=== PATIENT | female | born 1935 | race Caucasian/White ===

== ENCOUNTER 2022-04-27 00:17 | Inpatient (IN) | payer MEDICARE, OTHER ==
[~2022-04-27] VITALS: Ht 165.1 cm; Wt 47.2 kg
--- NOTE | 2022-04-27 00:32 | NUR ---
Medically cleared by ERMD
--- NOTE | 2022-04-27 00:48 | NUR ---
Transfered to [facility] by [facility].
[2022-04-27] MEDS ORDERED: MAGNESIUM HYDROXIDE 30 ML LIQUID UDC PO PRN (01:15)
[2022-04-27] MEDS ORDERED: MAG HYDROX/AL HYDROX/SIMETH 30 ML LIQUID UDC PO PRN (01:15)
[2022-04-27] MEDS ORDERED: BLOOD SUGAR DIAGNOSTIC 1 EACH STRIP VI ONE (01:15)
[2022-04-27] MEDS ORDERED: ACETAMINOPHEN 325 MG TABLET PO PRN (01:15)
[2022-04-27] MEDS ORDERED: TEMAZEPAM 7.5 MG CAPSULE PO PRN (01:15)
[2022-04-27 01:20] VITALS: BP 175/85
--- NOTE | 2022-04-27 01:30 | NUR ---
GPS NOTES: Admitted a 87 y/o female from [facility], BIB by [address] [facility], on 5150 d/t gravely disabled from 04/26/22 to @1815. Patient residing at home where a wellness checked was conducted by [employer] and [employer], she was found living in poor condition, lacks insight of her current situation, two cats were found at removed by her senior logistics manager. She forgot when she last ate and unable to care for herself. Upon face to face evaluation, patient is A&0x1, she is confused and unable to provide informations in regards to her history, she appears her stated age and fairly groomed. She is cooperative with body assessment, bilateral below extremities are to be edematous +2, she denies pain in the area. Toenails also appears to be mycotic. Pictures taken and filed. Upon collecting her belongings, a necklace was attempted to retrieve from her, she then became agitated, hostile and combative. Re-assure patient that her belongings will be for safe keeping. Patient not understanding the concepts and continues to be paranoid with the staff of stealing from her. Patient is very argumentative, paranoid and delusional. Patient stating "I don't know you people, you are keeping me in [facility], this is not my home, I want to go home!" Re-assurance provided that she is in a safe environment. Patient is oriented briefly in the unit. Her rights were explained, advisement and pt's right handbook given at bedside. She will be followed by Dr. Muñoz and Dr. Payton. Patient was kept safe at all times.
--- NOTE | 2022-04-27 07:32 | NUR ---
Patient sitting in a gerichair, hyperverbal, "where are my shoes, my purse, my keys, I know where I am in the hospital", orientated patient to current status, and situation, patient with poor insight. A/O x1, no S/S of discomforts noted. Will continue to monitor.
[2022-04-27 08:00] VITALS: BP 150/50
--- NOTE | 2022-04-27 12:18 | NUR ---
Patient is hyperverbal, focus on discharge, anxious, disorganized thoughts, persistent on getting out of unit, refuses po prns, "I dont need any medications, I don t take anything, I want go to the parking lot to go my car", patient unable to formulate a safe plan, want go outside to the parking lot to look for her car. Patient has poor insight, frequent verbal redirections requiring, emotional support provided.continue to monitor
[2022-04-27 16:00] VITALS: BP 123/55
--- NOTE | 2022-04-27 16:25 | NUR ---
GERMAN Initial Discharge Note: Pt currently resides at home alone located at [address] [place] [id number]. GERMAN will contact pt's friend, Reagan [phone] to discuss a safe discharge plan for the pt. GERMAN will continue to work with pt, Mike and to ensure a safe and proper discharge plan.
--- NOTE | 2022-04-27 16:26 | NUR ---
GERMAN Family Contact: Per pt, she does not have any children or family support. GERMAN will contact pt's friend, Reagan [phone] to discuss a safe discharge plan for the pt.
[2022-04-27] MEDS: DIVALPROEX SPRINKLE 125 MG CAP.SPRINK PO SCH (17:00)
--- NOTE | 2022-04-27 17:30 | NUR ---
Patient refused 17:00 Divalproex Sodium, "I dont want to take any medication it make my skin dry and my vein with no blood flow". continue to refused medications, educated patient on medication action and reaction but still continue to refused.
[2022-04-27 20:00] VITALS: BP 130/48
[2022-04-27] MEDS: MIRTAZAPINE 15 MG TABLET PO SCH (21:00)
--- NOTE | 2022-04-28 06:28 | NUR ---
GPS NOTES: Patient received in the hallway, interacting w/another peer. Patient A&0x1, ambulatory with minimal assistance to ADL's. She is confused and unaware of her current situation. She refused her remeron, explained the risks and benefits 3x but still confused. She is calm, pleasant and able to make her need known. She is sleeping on and off this shift. No distress noted. Safety measures left in places.
--- NOTE | 2022-04-28 06:47 | NUR ---
WOUND CARE CONSULT: RECEIVED CONSULT FOR TOENAILS. PT NOTED TO HAVE THICKENED TOENAILS WITH STAINING/DEBRIS WELL DISCOLORATION WITH THICKENED SKIN TO LOWER LEGS, PRESENT ON ADMISSION. RECOMMENDATIONS MADE FOR SKIN PROTECTION. DISCUSSED WITH NURSING STAFF. WILL SEE PRN. MEYER IN AGREEMENT WITH PLAN OF CARE.
[2022-04-28 08:25] VITALS: BP 140/49
[2022-04-28] MEDS: DIVALPROEX SPRINKLE 125 MG CAP.SPRINK PO SCH ×2 (08:39→17:00)
[2022-04-28] MEDS: MINERAL OIL/PETROLATUM,WHITE 57 GM TUBE TOP SCH (09:00)
[2022-04-28 16:14] VITALS: BP 112/55
--- NOTE | 2022-04-28 17:54 | NUR ---
Received patient in bed confused and disoriented , influenced by her roommate not taking any medication and not eating her breakfast.nurses staffs persuaded and explained patient took AM medication but still refused PM medication.refused to attend in group activity ,will continue close monitoring for safety
[2022-04-28 20:10] VITALS: BP 129/61
[2022-04-28] MEDS: MIRTAZAPINE 15 MG TABLET PO SCH (20:36)
--- NOTE | 2022-04-29 06:23 | NUR ---
GPS: Pt.slept 5.30 last night. Awake and was just given a shower by staff. Remains irritable,labile,argumentative,confused,delusional and suspicious. Re-directed prn. Safe environment provided. Will continue to monitor.
[2022-04-29 07:52] VITALS: BP 91/40
[2022-04-29] MEDS: DIVALPROEX SPRINKLE 125 MG CAP.SPRINK PO SCH ×3 (08:54→16:10)
[2022-04-29] MEDS: MINERAL OIL/PETROLATUM,WHITE 57 GM TUBE TOP SCH ×2 (08:54→23:18)
[2022-04-29 09:36] LABS: HEMATOCRIT 33.4 % (31.2-41.9); MEAN CORPUSCULAR HEMOGLOBIN 32.8 uug (24.7-32.8); MEAN CORPUSCULAR VOLUME 95.1 fL (75.5-95.3); PLATELET COUNT (AUTO) 103 K/uL (179-408)
[2022-04-29] MEDS: ENSURE ENLIVE (VAN) 240 ML LIQUID PO SCH ×2 (09:45→16:10)
[2022-04-29 10:01] LABS: BILIRUBIN,TOTAL 0.9 mg/dL (0.2-1.0); CREATININE 1.2 mg/dL (0.6-1.3); MAGNESIUM 2.2 mg/dL (1.8-2.4); PHOSPHOROUS 3.7 mg/dL (2.5-4.9); POTASSIUM 4.2 mmol/L (3.5-5.1); TOTAL PROTEIN, SERUM 5.5 g/dL (6.4-8.2)
--- NOTE | 2022-04-29 15:01 | NUR ---
GPS: Nursing Notes: Noncompliant With Medications: Patient is awake and responding to her name, disoriented, impaired judgment, poor insight, resistant with nursing care, argumentative with staff, refusing her medication because she believes that she does not have mental illness, confused, disorganized, stated "I do work here.... You need to call the boss...", redirected and reoriented during shift, but she gets easily irritable when redirected, loud and pressured speech, unable to formulate a viable plan for self care, unkempt appearance, continue to monitor for safety, continue with treatment plan.
[2022-04-29 16:07] VITALS: BP 115/67
[2022-04-29 20:00] VITALS: BP 147/55
[2022-04-29] MEDS: MIRTAZAPINE 15 MG TABLET PO SCH ×2 (20:22→21:00)
[2022-04-29] MEDS: LORAZEPAM 0.5 MG TABLET PO PRN (20:24)
--- NOTE | 2022-04-30 05:20 | NUR ---
Received pt awake in room, Confused ,disoriented labile, easily irritable, Pt is resistant with nursing care and not compliant with medications. pt refused her medications and stated "i do not have any sickness , i do not need any medications". Pt is argumentative with staff,Pt stated "i need to call the police, you guys are trying to harm me by pushing medications on me" . Pt was redirected and reoriented , Pt is unable to formulate a viable plan for self care. Reassurance provided. Continue to monitor for safety, continue with treatment plan.
[2022-04-30 08:38] VITALS: BP 120/54
[2022-04-30] MEDS: DIVALPROEX SPRINKLE 125 MG CAP.SPRINK PO SCH ×3 (08:42→16:21)
[2022-04-30] MEDS: ENSURE ENLIVE (VAN) 240 ML LIQUID PO SCH ×2 (08:43→16:21)
--- NOTE | 2022-04-30 13:04 | NUR ---
GPS: Nursing Notes: Noncompliance With Medication: Patient is awake and responding to her name, impaired judgment, poor insight, believes that there is nothing wrong with her, refusing her medication, argumentative, loud and pressured speech, paranoid behavior, stated "You are trying to poison me with that pill..", explained the pros and cons of medication, but continue to refuse her medication, gets easily irritable when redirected, unable to formulate a viable plan for self care, continue with treatment plan.
[2022-04-30 16:04] VITALS: BP 138/94
--- NOTE | 2022-04-30 20:00 | NUR ---
Received patient in bed, awake, goes to toilet for bladder eliminations, calm at this time, cont to monitor.
[2022-04-30 20:02] VITALS: BP 116/48
[2022-04-30] MEDS: MIRTAZAPINE 15 MG TABLET PO SCH (21:00)
--- NOTE | 2022-04-30 21:32 | NUR ---
refused mirtazapine 7.5 mg stated I'm not depressed.
--- NOTE | 2022-05-01 03:30 | NUR ---
Patient awake seated at the chair, patient looking for her shoes but they are not listed in the inventory, encourage patient to back to bed so that lower extremities can be elevated with pillow, patient that +3 edema of the feet and ankle. Patient refused to follow instructions, despite multiple explanation was given, uncooperative with care and medications, wanted to be release from this hospital, confused and argumentative. Patient roomates an instigator gives the patient wrong information about patient doctor, patient health etc. reorient patient that she should not listen to her room because roomates is confused and does not understand patient situation. Staff unable to convince patient to follow. Patient and roomates in the hallways making noise refused to go back to their room, asked security to escort them to the room and successful, cont to monitor.
[2022-05-01] MEDS: ENSURE ENLIVE (VAN) 240 ML LIQUID PO SCH ×2 (08:00→17:00)
[2022-05-01] MEDS: DIVALPROEX SPRINKLE 125 MG CAP.SPRINK PO SCH ×3 (08:27→17:00)
[2022-05-01] MEDS: MINERAL OIL/PETROLATUM,WHITE 57 GM TUBE TOP SCH (08:27)
[2022-05-01 08:30] VITALS: BP 114/57
--- NOTE | 2022-05-01 11:53 | NUR ---
Awa papers were faxed to [address] today at 11:10, Jesika confirmed that the court received it.
--- NOTE | 2022-05-01 14:09 | NUR ---
GPS: Nursing Notes: Noncompliance With Medications: Patient is awake and responding to her name, uncooperative with nursing care, impaired judgment, poor insight, believes that there is nothing wrong with her, stated "You are crazy.. I do not belong here..I am going to call the police..", "I am not mentally ill.. I am not going to take any medication..", gets easily irritable when redirected, argumentative, educational materials given regarding Seroquel and Depakote, explained the pros and cons of the medications, but continue to refuse the psych. medications, loud and pressured speech, angry at staff, threatening staff by calling the police and send staff to residential, unable to formulate a viable plan for self care, continue to monitor for safety, continue with treatment plan.
[2022-05-01 16:20] VITALS: BP 101/47
[2022-05-01 19:44] VITALS: BP 128/59
[2022-05-01] MEDS ORDERED: QUETIAPINE FUMARATE 25 MG TABLET PO SCH (21:00)
--- NOTE | 2022-05-02 03:37 | NUR ---
Patient continues to refuse all medications, despite education and encouragement. This engineering technical writer is unable to engage in any meaningful conversation with this patient because she will argues about everything, is paranoid , delusional and verbally abusive to the staff. Reorientation and redirection is ongoing . Safety Stratiges are in place, and assistance with ADLs provided when the patient allows.
[2022-05-02 07:45] LABS: HEMATOCRIT 28.7 % (31.2-41.9); MEAN CORPUSCULAR HEMOGLOBIN 32.8 uug (24.7-32.8); PLATELET COUNT (AUTO) 92 K/uL (179-408)
[2022-05-02] MEDS: ENSURE ENLIVE (VAN) 240 ML LIQUID PO SCH ×2 (08:00→16:10)
[2022-05-02 08:05] LABS: BILIRUBIN,TOTAL 0.6 mg/dL (0.2-1.0); CREATININE 1.1 mg/dL (0.6-1.3); POTASSIUM 4.5 mmol/L (3.5-5.1); TOTAL PROTEIN, SERUM 4.9 g/dL (6.4-8.2)
[2022-05-02 08:08] VITALS: BP 136/71
[2022-05-02] MEDS: DIVALPROEX SPRINKLE 125 MG CAP.SPRINK PO SCH ×2 (08:43→12:58)
[2022-05-02] MEDS: MINERAL OIL/PETROLATUM,WHITE 57 GM TUBE TOP SCH (08:43)
[2022-05-02] MEDS ORDERED: OLANZAPINE 10 MG VIAL IM PRN (11:00)
--- NOTE | 2022-05-02 11:14 | NUR ---
GPS: Nursing Notes: Noncompliance With Medication: Patient is awake and responding to her name, impaired judgment, poor insight, believes that there is nothing wrong with her, refusing her medication, stated "I am not mentally ill.... I don't want to take any medication...I am going to call the police..", resistant with nursing care, gets easily irritable when redirected, argumentative, poor anger management, unable to formulate a viable plan for self care, continue with treatment plan.
[2022-05-02 15:22] VITALS: BP 111/50
[2022-05-02 16:40] LABS: LYMPHOCYTES % (MANUAL) 33 % (20-40); MONOCYTES % (MANUAL) 6 % (2-10); NEUTROPHILS % (MANUAL) 60 % (42-75)
[2022-05-02 16:41] LABS: BASOPHILS % (MANUAL) 0 % (0-2); EOSINOPHILS % (MANUAL) 1 % (0-8)
[2022-05-02 19:51] VITALS: BP 134/66
[2022-05-02] MEDS: OLANZAPINE 2.5 MG TABLET PO SCH (20:40)
--- NOTE | 2022-05-03 06:40 | NUR ---
GPS: Pt.slept 5.30 last night. Remains confused,forgetful but more re-directable. Less argumentative and irritable. Safe environment provided. Needs attended.
[2022-05-03 07:55] VITALS: BP 100/52
[2022-05-03] MEDS: ENSURE ENLIVE (VAN) 240 ML LIQUID PO SCH ×2 (08:57→17:05)
[2022-05-03] MEDS: MINERAL OIL/PETROLATUM,WHITE 57 GM TUBE TOP SCH (09:21)
[2022-05-03 15:10] VITALS: BP 126/53
--- NOTE | 2022-05-03 15:42 | NUR ---
Received Pt in room responding to her name. Pt is confused forgetful, labile easily irritable but more redirectable and less argumentative.Pt is compliant with nursing care and needs moderate assistance with ADLs. reassurance provided Continue to monitor for safety , continue with treatment plan.
[2022-05-03 16:58] LABS: *BILIRUBIN,URIN NEGATIVE (NEGATIVE); *BLOOD, URINE NEGATIVE (NEGATIVE); *CLARITY,URINE CLEAR (CLEAR); *COLOR,URINE YELLOW (YELLOW); *KETONES,URINE NEGATIVE (NEGATIVE); *UROBILINOGEN,URINE 0.2 E.U./dl (NORMAL); LEUKOCYTE ESTERASE ,URINE TRACE (NEGATIVE); NITRITE, URINE NEGATIVE (NEGATIVE); PH,URINE 5.5 (5.0-8.0); UGLUCOSE NEGATIVE (NEGATIVE)
[2022-05-03 19:58] VITALS: BP 114/51
[2022-05-03] MEDS: OLANZAPINE 2.5 MG TABLET PO SCH (20:09)
[2022-05-03 22:35] LABS: BACTERIA,URINE FEW /HPF (NONE SEEN); RBC,URINE 0-3 /HPF (0-3); SQUAMOUS EPITHELIAL CELL,UR FEW /HPF (NONE SEEN)
--- NOTE | 2022-05-04 06:13 | NUR ---
GPS: Pt.slept 6 hrs.last night and remains in bed resting comfortably. Less labile.argumentative,irritable when approached. Insight and judgment remains impaired. Staff continues to explain the importance of taking her meds.prescribed. Safe environment provided. Needs attended.
[2022-05-04 07:36] LABS: HEMATOCRIT 28.7 % (31.2-41.9); MEAN CORPUSCULAR HEMOGLOBIN 33.2 uug (24.7-32.8); MEAN CORPUSCULAR VOLUME 96.7 fL (75.5-95.3); PLATELET COUNT (AUTO) 98 K/uL (179-408)
[2022-05-04 08:12] LABS: MAGNESIUM 2.1 mg/dL (1.8-2.4); PHOSPHOROUS 3.6 mg/dL (2.5-4.9); POTASSIUM 4.3 mmol/L (3.5-5.1)
[2022-05-04 08:38] VITALS: BP 117/51
[2022-05-04] MEDS: MINERAL OIL/PETROLATUM,WHITE 57 GM TUBE TOP SCH (09:03)
[2022-05-04] MEDS: ENSURE ENLIVE (VAN) 240 ML LIQUID PO SCH ×2 (09:03→17:08)
[2022-05-04 13:54] LABS: IRON, SERUM 49 ug/dL (50-175)
[2022-05-04 14:24] LABS: FERRITIN 193 ng/mL (8-252)
[2022-05-04 14:26] LABS: *RHEUMATOID FACTOR SCREEN NEGATIVE (NEGATIVE)
--- NOTE | 2022-05-04 15:00 | NUR ---
Nursing- Had been in and out of her activity group, difficulty finding her room, , constantly being redirected . Compliant with routine am medications . Interacts with her selected peers. Assisted with her simple hygiene.
[2022-05-04 16:04] VITALS: BP 148/46
[2022-05-04 21:13] VITALS: BP 102/45
[2022-05-04] MEDS: CEphaleXIN 500 MG CAPSULE PO SCH (23:50)
[2022-05-04] MEDS: OLANZAPINE 2.5 MG TABLET PO SCH (23:51)
--- NOTE | 2022-05-05 04:25 | NUR ---
Patient was sleeping at start of the shift, therefore PO medications were given late. Patient was assisted to the bathroom, cherelle care and oral care provided. The patient is less paranoid then previously noted . This patient has poor insight into her situation, living conditions and abilities to preform her ADLs safely. The patient is argumentative at times and got up in the night to ask the staff " Wake up my room mate and tell her to stop snoring"! Redirection and reassurance is on going. Safety Stratiges remain in place. Continuing to monitor for compliance.
[2022-05-05 07:34] VITALS: BP 118/40
[2022-05-05] MEDS: ENSURE ENLIVE (VAN) 240 ML LIQUID PO SCH ×2 (08:00→17:17)
[2022-05-05] MEDS ORDERED: VENLAFAXINE XR 37.5 MG CAP.SR.24H PO SCH (09:00)
[2022-05-05 10:07] LABS: *ANTI-SCLERODERMA-70 AB <0.2 AI (0.0-0.9); *IMMUNOGLOBULIN G, SERUM 672 mg/dL (586-1602); *SJOGREN'S ANTI-SS-A 0.3 AI (0.0-0.9); *SJOGREN'S ANTI-SS-B <0.2 AI (0.0-0.9); *SMITH ANTIBODIES <0.2 AI (0.0-0.9); ANTI-DNA(DS) AB, QN 1 IU/mL (0-9); HEPATITIS B SURFACE AG Negative (Negative); IMMUNOGLOBULIN M, SERUM 52 mg/dL (26-217)
[2022-05-05] MEDS: MINERAL OIL/PETROLATUM,WHITE 57 GM TUBE TOP SCH (10:13)
--- NOTE | 2022-05-05 11:00 | NUR ---
Gps/Taxicab Starter- Kept patient NPO for abdominal u/s as ordered, called ultrasound Dept 3 x, left messages. no answer nor return call., patient was well informed why she was kept NPO r/t to test . Patient claimed she's very hungry , and cant wait to eat .
[2022-05-05] MEDS: CEphaleXIN 500 MG CAPSULE PO SCH ×2 (12:48→20:28)
[2022-05-05 13:06] LABS: A/G RATIO 1.4 (0.7-1.7); ALBUMIN 2.6 g/dL (2.9-4.4); ALPHA-1-GLOBULIN 0.2 g/dL (0.0-0.4); ALPHA-2-GLOBULIN 0.4 g/dL (0.4-1.0); BETA GLOBULIN 0.6 g/dL (0.7-1.3); GAMMA GLOBULIN 0.6 g/dL (0.4-1.8); GLOBULIN, TOTAL 1.9 g/dL (2.2-3.9); M-SPIKE Not Observed g/dL (Not Observed)
[2022-05-05 15:37] VITALS: BP 104/42
--- NOTE | 2022-05-05 16:39 | NUR ---
Gps/Pot Fireman- Compliant with routine meds, had been quiet, resumed diet, patient complained of being hungry kept asking fo her food. U/S was called couple of times to check schedule time for U/S no return call received , Tamie TAI was informed , aware of previous labs
[2022-05-05] MEDS ORDERED: CYANOCOBALAMIN 1000 MCG/ML VIAL IM SCH (17:45)
[2022-05-05] MEDS: LORAZEPAM 0.5 MG TABLET PO PRN (20:17)
[2022-05-05] MEDS: OLANZAPINE 2.5 MG TABLET PO SCH (20:27)
[2022-05-05] MEDS: CYANOCOBALAMIN 1000 MCG/ML VIAL IM SCH (20:28)
[2022-05-05 20:48] VITALS: BP 130/51
--- NOTE | 2022-05-06 06:09 | NUR ---
Patient had 2.30 hr of sleep. The patient was up multiple times during the night, using the bathroom. She was incontinent each time and has no bladder control. The patient has been compliant with medications and continues to be on antibiotics for a UTI. A shower was provided . Safety Stratiges remain in place. The patient has poor insight of her situation and believes that she can live alone at home without difficulty. Maximum assistance needed with all ADLs at this time.
[2022-05-06 07:47] VITALS: BP 126/44
[2022-05-06 08:08] LABS: HEMATOCRIT 30.6 % (31.2-41.9); MEAN CORPUSCULAR HEMOGLOBIN 32.9 uug (24.7-32.8); MEAN CORPUSCULAR VOLUME 97.2 fL (75.5-95.3); PLATELET COUNT (AUTO) 110 K/uL (179-408)
[2022-05-06 08:18] LABS: POTASSIUM 4.5 mmol/L (3.5-5.1)
[2022-05-06] MEDS: MINERAL OIL/PETROLATUM,WHITE 57 GM TUBE TOP SCH (08:53)
[2022-05-06] MEDS: CEphaleXIN 500 MG CAPSULE PO SCH ×2 (08:53→20:48)
[2022-05-06] MEDS: ENSURE ENLIVE (VAN) 240 ML LIQUID PO SCH ×2 (08:54→17:05)
[2022-05-06] MEDS: LEVOTHYROXINE SODIUM 25 MCG TABLET PO SCH (08:56)
[2022-05-06 18:08] VITALS: BP 107/53
[2022-05-06] MEDS: OLANZAPINE 2.5 MG TABLET PO SCH (20:47)
[2022-05-06] MEDS: CYANOCOBALAMIN 1000 MCG/ML VIAL IM SCH (20:48)
[2022-05-06 21:02] VITALS: BP 116/51
--- NOTE | 2022-05-06 21:53 | NUR ---
RECEIVED REPORT FROM JACQUIE PRIETO.
[2022-05-07] MEDS: LEVOTHYROXINE SODIUM 25 MCG TABLET PO SCH (06:05)
--- NOTE | 2022-05-07 07:01 | NUR ---
REPORT GIVEN TO JACQUIE MEDEROS.
[2022-05-07 07:37] LABS: HEMATOCRIT 32.4 % (31.2-41.9); MEAN CORPUSCULAR HEMOGLOBIN 33.1 uug (24.7-32.8); MEAN CORPUSCULAR VOLUME 97.6 fL (75.5-95.3); PLATELET COUNT (AUTO) 122 K/uL (179-408)
[2022-05-07 07:47] LABS: CREATININE 0.9 mg/dL (0.6-1.3); POTASSIUM 4.8 mmol/L (3.5-5.1)
[2022-05-07 08:14] VITALS: BP 121/68
[2022-05-07] MEDS: CEphaleXIN 500 MG CAPSULE PO SCH ×2 (08:52→20:53)
[2022-05-07] MEDS: ENSURE ENLIVE (VAN) 240 ML LIQUID PO SCH ×2 (08:53→17:27)
[2022-05-07] MEDS: MINERAL OIL/PETROLATUM,WHITE 57 GM TUBE TOP SCH (08:55)
--- NOTE | 2022-05-07 16:00 | NUR ---
Gps/R D Engineer- Kept coming out of her room requesting assist to help her with her diaper, assisted with her hygiene , incontinence of bladder noted. Increased edema to lower extremities encouraged to stay in bed elevate her lower extremities . Safety reviewed , making her simple needs known.
[2022-05-07 16:26] VITALS: BP 129/56
[2022-05-07 20:13] VITALS: BP 110/50
[2022-05-07] MEDS: OLANZAPINE 2.5 MG TABLET PO SCH (20:53)
[2022-05-07] MEDS: CYANOCOBALAMIN 1000 MCG/ML VIAL IM SCH (21:37)
--- NOTE | 2022-05-08 05:30 | NUR ---
Patient awake, ambulate in her room and hallways, Patient calm and cooperative with care and medications, no behavioral problem noted, cont to monitor.
[2022-05-08] MEDS: LEVOTHYROXINE SODIUM 25 MCG TABLET PO SCH (06:45)
[2022-05-08 07:40] LABS: HEMATOCRIT 29.9 % (31.2-41.9); MEAN CORPUSCULAR HEMOGLOBIN 32.8 uug (24.7-32.8); MEAN CORPUSCULAR VOLUME 97.8 fL (75.5-95.3); PLATELET COUNT (AUTO) 115 K/uL (179-408)
[2022-05-08 07:51] LABS: CREATININE 1.1 mg/dL (0.6-1.3); POTASSIUM 4.5 mmol/L (3.5-5.1)
[2022-05-08 07:56] VITALS: BP 101/44
[2022-05-08] MEDS: CEphaleXIN 500 MG CAPSULE PO SCH ×2 (08:41→20:40)
[2022-05-08] MEDS: ENSURE ENLIVE (VAN) 240 ML LIQUID PO SCH (08:41)
[2022-05-08] MEDS: MINERAL OIL/PETROLATUM,WHITE 57 GM TUBE TOP SCH (08:42)
--- NOTE | 2022-05-08 14:26 | NUR ---
GPS: Nursing Notes: Noncompliance With Medication: Patient is awake and responding to her name, cooperative with nursing care, compliant with her medication, following staff directions, A/Ox2, forgetful at times, needs prompting to participate in therapeutic groups, needs minimal assistance with ADL's, redirected and reoriented during shift, unable to formulate a viable plan for self care, continue to monitor for safety, continue with treatment plan.
[2022-05-08 16:27] VITALS: BP 149/70
[2022-05-08 19:47] VITALS: BP 128/48
[2022-05-08] MEDS: LORAZEPAM 0.5 MG TABLET PO PRN (20:40)
[2022-05-08] MEDS: OLANZAPINE 2.5 MG TABLET PO SCH (20:40)
[2022-05-08] MEDS: CYANOCOBALAMIN 1000 MCG/ML VIAL IM SCH (20:40)
[2022-05-08 23:22] LABS: BAND % (MANUAL) 1 % (0-10); EOSINOPHILS % (MANUAL) 3 % (0-8); LYMPHOCYTES % (MANUAL) 26 % (20-40); MONOCYTES % (MANUAL) 11 % (2-10); NEUTROPHILS % (MANUAL) 59 % (42-75)
--- NOTE | 2022-05-09 03:16 | NUR ---
Patient was irritable, argumentative and confused at the start of the shift. Insisting that " Somebody slept in my bed last night and I had to sleep over there". This music writer reassured and reoriented the patient multiple times. Eventually, providing a shower and a complete linen change. The patient has been up frequently during the night, incontinent and cherelle-care provided each time. The patient is medication compliant. Safety Stratiges are in place .
[2022-05-09] MEDS: LEVOTHYROXINE SODIUM 25 MCG TABLET PO SCH (05:23)
[2022-05-09 07:48] LABS: HEMATOCRIT 30.4 % (31.2-41.9); MEAN CORPUSCULAR HEMOGLOBIN 33.2 uug (24.7-32.8); MEAN CORPUSCULAR VOLUME 97.5 fL (75.5-95.3); PLATELET COUNT (AUTO) 114 K/uL (179-408)
[2022-05-09 07:58] LABS: POTASSIUM 4.7 mmol/L (3.5-5.1)
[2022-05-09 08:00] VITALS: BP 134/56
[2022-05-09] MEDS: CEphaleXIN 500 MG CAPSULE PO SCH (08:44)
[2022-05-09] MEDS: MINERAL OIL/PETROLATUM,WHITE 57 GM TUBE TOP SCH (08:45)
--- NOTE | 2022-05-09 13:59 | NUR ---
GPS: Nursing Notes: Thought Disorder: Patient is awake and responding to her name, impaired judgment, poor insight, A/Ox2, disorganized, disoriented, forgetful, needs prompting to participate in therapeutic groups, unable to formulate a viable plan for self care, continue to monitor for safety, continue to be compliant with her medications, cooperative with nursing care, continue with treatment plan.
[2022-05-09 16:28] VITALS: BP 114/44
[2022-05-09 19:54] VITALS: BP 136/54
[2022-05-09] MEDS: CYANOCOBALAMIN 1000 MCG/ML VIAL IM SCH (20:19)
[2022-05-09] MEDS: OLANZAPINE 2.5 MG TABLET PO SCH (20:19)
[2022-05-09] MEDS: LORAZEPAM 0.5 MG TABLET PO PRN (20:19)
[2022-05-09] MEDS ORDERED: MEMANTINE HCL 5 MG TABLET PO SCH (21:00)
[2022-05-09 23:09] LABS: EOSINOPHILS % (MANUAL) 2 % (0-8); LYMPHOCYTES % (MANUAL) 32 % (20-40); MONOCYTES % (MANUAL) 7 % (2-10); NEUTROPHILS % (MANUAL) 58 % (42-75)
--- NOTE | 2022-05-10 04:25 | NUR ---
The patient was up and down during the shift, incontinent and needing assistance. The patient is confused , but pleasant. No paranoia or irritability noted at this time. Safety Stratiges are in place. Reorientation and redirection is ongoing. The patient continues to be medication compliant.
[2022-05-10] MEDS: LEVOTHYROXINE SODIUM 25 MCG TABLET PO SCH (07:14)
[2022-05-10 07:24] LABS: HEMATOCRIT 29.3 % (31.2-41.9); MEAN CORPUSCULAR VOLUME 97.9 fL (75.5-95.3); PLATELET COUNT (AUTO) 116 K/uL (179-408)
[2022-05-10 07:32] LABS: POTASSIUM 4.6 mmol/L (3.5-5.1)
[2022-05-10 08:00] VITALS: BP 93/58
[2022-05-10] MEDS: MINERAL OIL/PETROLATUM,WHITE 57 GM TUBE TOP SCH (09:29)
--- NOTE | 2022-05-10 09:36 | NUR ---
GERMAN Discharge Screener: GERMAN completed a discharge screener.
--- NOTE | 2022-05-10 09:38 | NUR ---
GERMAN Discharge Note: Pt will be discharged to [facility] located at [address] [place] [id number] ([phone]) via Ambulance transportation at 10AM. GERMAN spoke with Jennie nicholas [phone] at the facility who states they are ready to accept the patient today. Pt is aware and agreeable with discharge plan. Pt does not have any family contact at this time. Pt is alert and oriented x4, is unable to plan for self-care at this time. However, pt is willing to accept care at SNF. Pt denies any suicidal or homicidal ideation. Pt will follow-up at the facility with Psychiatrist, Dr. Muñoz ([phone]) and Lieutenant Firefighter, Dr. Servin. Pt presents with calm mood and congruent affect. PHARMACY: [facility] [phone] [address] [place] [address].
--- NOTE | 2022-05-10 10:51 | NUR ---
Patient discharge at this time to [facility]. Patient Alert x 3, cooperative, follow directions. Pt denies SI/HI AH/VH, SOB, pain or any discomforts. All belongings were returned to patient. Patient left unit @ 10:45AM. Emotional support provided.
== END 2022-05-10 10:45 | DRG 885 ==
LOC: ER 00:26 → GPS 00:41
PROVIDERS: ADMIT Psychiatry & Neurology Psychosomatic Medicine
DX: F39 Unspecified mood [affective] disorder (principal); F03.918 Unspecified dementia, unspecified severity, with other behavioral disturbance; D61.818 Other pancytopenia; N39.0 Urinary tract infection, site not specified; E03.9 Hypothyroidism, unspecified; E88.09 Other disorders of plasma-protein metabolism, not elsewhere classified; Z20.822 Contact with and (suspected) exposure to COVID-19; D69.6 Thrombocytopenia, unspecified; E53.8 Deficiency of other specified B group vitamins; Z73.6 Limitation of activities due to disability
CPT/HCPCS: 36415; 70030-TC; 70450; 80164; 82746; 82784; 83550; 83735; 84100; 84155; 84165; 84443; 85025; 86038; 86334; 86430; 86706; 86803; 87340; A4663; A6209; J3420